=== PATIENT | female | born 1995 | race Caucasian/White ===

== ENCOUNTER 2020-02-25 06:04 | Emergency (ER) | payer OTHER ==
[2020-02-25 07:00] LABS: BASOPHIL 0.3 % (0-2); EOSINOPHIL 1.2 % (0-5); HCT 42.5 % (37.0-47.0); HGB 14.5 g/dl (12.5-16.0); LYMPHOCYTE 23.3 % (15-48); MCH 33.8 pg (25.0-31.0); MCHC 34.1 g/dL (32.0-36.0); MCV 99.1 fL (78.0-100.0); MONOCYTE 4.9 % (0-12); MPV 10.1 fL (6.0-9.5); NEUTROPHIL 70.1 % (41-80); NRBC 0; PLT 373 K/uL (150-400); RBC 4.29 M/uL (4.20-5.40); RDW 11.9 % (11.5-14.0); WBC 8.9 K/uL (4.0-10.5)
[2020-02-25 07:01] LABS: BILIRUBIN NEGATIVE (NEGATIVE); BLOOD 3+ Ery/uL (NEGATIVE); CLARITY CLEAR (CLEAR); COLOR YELLOW (YELLOW); GLUCOSE (U) NORMAL (NORMAL); LEUKOCYTES NEGATIVE Leu/uL (NEGATIVE); NITRITE NEGATIVE (NEGATIVE); PROTEIN NEGATIVE (NEGATIVE); UROBILINOGEN 0.2 mg/dL (0.2-1.0)
[2020-02-25 07:10] LABS: BACTERIA TRACE
[2020-02-25 07:15] LABS: BUN/CREAT RATIO (CALC) 10.8 RATIO; CREATININE 0.65 mg/dL (0.51-0.95)
== END 2020-02-25 08:30 | disposition home or self-care (01) ==
LOC: FER 06:04
PROVIDERS: Emergency Medicine
DX: O02.1 Missed abortion (principal)
CPT/HCPCS: 36415; 76817; 80048; 81001; 84702; 85025; 86900; 86901